=== PATIENT | female | born 1985 | race Caucasian/White ===

== ENCOUNTER 2021-11-14 13:53 | Emergency (ER) | payer OTHER ==
[~2021-11-14] VITALS: Ht 162.6 cm; Wt 72.6 kg
[2021-11-14] MEDS ORDERED: METPRE4DP PO (14:03)
[2021-11-14] MEDS ORDERED: Norco 5-325 Ta1 EACH PO (14:03)
[2021-11-14] MEDS ORDERED: IBU600 M1 PO (14:03)
[2021-11-14] MEDS ORDERED: CYCL10 PO (14:03)
== END 2021-11-14 14:38 | disposition home or self-care (01) ==
LOC: ER 13:53
DX: M54.50 Low back pain, unspecified (principal)
CPT/HCPCS: 96372; 99283-25; J1885

== ENCOUNTER 2024-12-20 21:40 | Emergency (ER) | payer OTHER ==
[~2024-12-20] VITALS: Ht 162.6 cm; Wt 75.8 kg
[~2024-12-20 21:40] MED LIST: CYCL10 PO; IBU600 M1 PO; METPRE4DP PO; Norco 5-325 Ta1 EACH PO; ZOLOFT25 MG PO
[2024-12-20] MEDS ORDERED: Ketorolac Tromethamine 15mg Vial IM ONE (23:55)
[2024-12-20] MEDS ORDERED: RX Prepack 2 Tabs Ondansetron ODT 4MG UD ONE (23:55)
[2024-12-20] MEDS ORDERED: Ondansetron 4 MG SoluTab BC ONE (23:55)
[2024-12-20] MEDS ORDERED: Methyl Salicylate/Menth/Camph 57 GM TUBE TOP ONE (23:55)
[2024-12-20] MEDS ORDERED: CYCL10 PO (23:57)
[2024-12-20] MEDS ORDERED: ONDA4ODT MM (23:57)
[2024-12-21 00:30] VITALS: BP 117/76
== END 2024-12-21 00:30 | disposition home or self-care (01) ==
LOC: ER 21:40
DX: M54.16 Radiculopathy, lumbar region (principal); G89.29 Other chronic pain; Z79.899 Other long term (current) drug therapy
CPT/HCPCS: 99283; A9270; J1885

== ENCOUNTER 2024-12-25 22:37 | Emergency (ER) | payer OTHER ==
[~2024-12-25] VITALS: Ht 165.1 cm; Wt 75.8 kg
[~2024-12-25 22:37] MED LIST changes: +ONDA4ODT MM
[2024-12-25] MEDS ORDERED: Ketorolac Tromethamine 15mg Vial IV ONE (23:00)
[2024-12-25] MEDS ORDERED: Diazepam 5 MG / ML 2ML SYR IV ONE (23:05)
[2024-12-25 23:55] VITALS: BP 136/81
[2024-12-26] MEDS ORDERED: RX Prepack 6 Tabs Oxycodone 5mg UD ONE (00:30)
== END 2024-12-26 01:11 | disposition home or self-care (01) ==
LOC: ER 22:37
DX: S39.012A Strain of muscle, fascia and tendon of lower back, initial encounter (principal); X58.XXXA Exposure to other specified factors, initial encounter; Z79.899 Other long term (current) drug therapy
CPT/HCPCS: 96374; 96375; 99283-25; A9270; J1885; J3360